=== PATIENT | female | born 1960 | race Caucasian/White ===

== ENCOUNTER → 2016-03-13 | Outpatient (CLI) | payer OTHER ==
--- NOTE | 2016-03-16 11:43 | MM ---
Reason for exam: screening (asymptomatic). Last mammogram was performed 1 year and 2 months ago. History: Patient is postmenopausal. Benign excisional biopsy of the left breast. Benign excisional biopsy of the right breast. Taking estrogen for 9 years beginning at age 47. Physical Findings: A clinical breast exam by your physician is recommended on an annual basis and results should be correlated with mammographic findings. MG Screening Mammo w CAD Bilateral CC and MLO view(s) were taken. Prior study comparison: January 16, 2015, bilateral MG screening mammo w CAD. January 05, 2014, bilateral MG screening mammo w CAD. The breast tissue is extremely dense which could obscure a lesion on mammography. No significant changes when compared with prior studies. ASSESSMENT: Benign, BI-RAD 2 RECOMMENDATION: Routine screening mammogram of both breasts in 1 year.
== END | disposition home or self-care (01) ==
LOC: RADMAMWWP 14:26
PROVIDERS: ATTEND Internal Medicine
DX: Z12.31 Encounter for screening mammogram for malignant neoplasm of breast (principal)

== ENCOUNTER → 2017-04-07 | Outpatient (CLI) | payer OTHER ==
--- NOTE | 2017-04-08 13:04 | MM ---
Reason for exam: screening (asymptomatic). Last mammogram was performed 1 year and 1 month ago. History: Patient is postmenopausal. Benign excisional biopsy of the left breast. Benign excisional biopsy of the right breast. Taking estrogen for 9 years beginning at age 47. Physical Findings: A clinical breast exam by your physician is recommended on an annual basis and results should be correlated with mammographic findings. MG Screening Mammo w CAD Bilateral CC and MLO view(s) were taken. Prior study comparison: March 13, 2016, bilateral MG screening mammo w CAD. January 16, 2015, bilateral MG screening mammo w CAD. The breast tissue is heterogeneously dense. This may lower the sensitivity of mammography. There is chronic nodularity bilaterally. There is no dominant lesion. There is no discrete abnormality. No significant changes when compared with prior studies. ASSESSMENT: Benign, BI-RAD 2 RECOMMENDATION: Routine screening mammogram of both breasts in 1 year.
== END | disposition home or self-care (01) ==
LOC: RADMAMWWP 10:53
PROVIDERS: ATTEND Internal Medicine
DX: Z12.31 Encounter for screening mammogram for malignant neoplasm of breast (principal)
CPT/HCPCS: 77067

== ENCOUNTER → 2017-06-02 | Outpatient (CLI) | payer OTHER ==
--- NOTE | 2017-06-02 11:23 | CT ---
EXAMINATION TYPE: CT abdomen w con DATE OF EXAM: 06/02/2017 HISTORY: RLQ pain per patient. Right lower flank pain per order. CT DLP: 1529.20mGycm Automated Exposure Control for Dose Reduction was Utilized. CONTRAST: CT scan of the abdomen and pelvis is performed with oral and without and with IV Contrast, patient in jected with 100 mL of Isovue 300. COMPARISON: None. FINDINGS: LUNG BASES: Coronary artery calcification is present which is noted marker for coronary artery diseas e. LIVER/GB: No significant abnormality is appreciated. PANCREAS: No significant abnormality is seen. SPLEEN: No significant abnormality is seen. ADRENALS: No significant abnormality is seen. KIDNEYS: Noncontrast images show no renal calculi bilaterally. Postcontrast images show symmetric cor tical medullary uptake and excretion from both kidneys without evidence of concerning solid or cystic renal mass or hydronephrosis bilaterally. There are scattered right greater than left pelvic phlebol iths. BOWEL: The oral contrast reaches level of sigmoid colon. There is no suspicious small or large bowel dilatation. There is low lying cecum into the anterior right pelvis. There is mild wall thickening of the proximal one third to one half of right colon. Appendix not well visualized. No inflammatory yeyo nge at base of cecum is seen however. UTERUS/ADNEXA: Uterus is surgically absent or markedly atrophic in appearance. LYMPH NODES: No greater than 1cm abdominal or pelvic lymph nodes are appreciated. OSSEOUS STRUCTURES: There is dextroconvex scoliosis centered in the upper lumbar spine. There is loss of normal lumbar lordosis. There is moderate multilevel spurring. There is moderate to severe disc s pace narrowing L1-L2 level. Posterior spur disc are effacing anterior thecal sac L1-L2 and L2-L3 leve ls. OTHER: No significant additional abnormality is seen. IMPRESSION: 1. No renal stones or hydronephrosis is evident bilaterally. 2. Possible mild right-sided proximal colitis, correlate clinically. No bowel obstruction is seen.
== END | disposition home or self-care (01) ==
LOC: RADCTMAIN 08:49
PROVIDERS: ATTEND Internal Medicine
DX: R10.31 Right lower quadrant pain (principal)
CPT/HCPCS: 74160; Q9967

== ENCOUNTER 2017-06-23 09:37 | Day surgery (SDC) | payer OTHER ==
[2017-06-22 12:36] VITALS: BMI 32.0
[~2017-06-23 09:37] MED LIST: LACTATED RINGERS 1,000 ML IV SCH; LIDOCAINE 1% 20 ML VIAL (10MG/ML) FOR IV START INTRADERMA PRN
[2017-06-23 10:12] VITALS: RESP 16; TEMP 97.4
--- NOTE | 2017-06-23 11:00 | P.PCN ---
Date of Procedure: 06/23/17 Procedure(s) Performed: BRIEF HISTORY: Patient is a 57-year-old pleasant white male, scheduled for an elective colonoscopy as a part of evaluation of positive Cologard testing, done for screening for colorectal neoplasia. PROCEDURE PERFORMED: Colonoscopy with snare polypectomy. PREOPERATIVE DIAGNOSIS: Positive cologard. IV sedation per Anesthesia. PROCEDURE: After informed consent was obtained, the patient, was brought into the endoscopy unit. IV sedation was administered by Anesthesia under continuous monitoring. Digital rectal examination was normal. Initially the Olympus CF- 160 flexible video colonoscope was then inserted in the rectum, gradually advanced into the cecum without any difficulty. Careful examination was performed as the scope was gradually being withdrawn. Ileocecal valve and the appendiceal orifice were visualized and appeared normal. Prep was excellent. Mucosa of the cecum appeared normal. In the ascending colon there was a 5 mm sessile polyp removed by snare polypectomy. Rest of the ascending colon, transverse colon, descending colon, sigmoid colon, and rectum appeared normal. Retroflexion was performed in the rectum and no lesions were seen. The patient tolerated the procedure well. IMPRESSION: 5 mm ascending colon polyp status post polypectomy Rest of the colon was normal. RECOMMENDATIONS: Findings of this examination were discussed with the patient as his family. He Was advised to follow with the biopsy results. If the biopsy shows a tubular adenoma, he can have a repeat colonoscopy in 5 years.
[2017-06-23] MEDS ORDERED: PROPOFOL 10 MG/ML 20 ML VIAL IV ONE (11:07)
[2017-06-23 11:30] VITALS: BP 106/63
[2017-06-23 11:41] VITALS: PULSE 67
--- NOTE | 2017-06-23 12:00 | P.PCN ---
Date of Procedure: 06/23/17 Procedure(s) Performed: BRIEF HISTORY: Patient is a 57-year-old pleasant female, scheduled for an elective colonoscopy as a part of a value should of right-sided abdominal pain for the last 1 month duration. She had a CT of the abdomen and pelvis done that showed evidence of thickening of the right colon suspicious colitis and hence she is scheduled for colonoscopy to evaluate further PROCEDURE PERFORMED: Colonoscopy with biopsy. PREOPERATIVE DIAGNOSIS: Right-sided abdominal pain of one month duration. IV sedation per Anesthesia. PROCEDURE: After informed consent was obtained, the patient, was brought into the endoscopy unit. IV sedation was administered by Anesthesia under continuous monitoring. Digital rectal examination was normal. Initially the Olympus CF- 160 flexible video colonoscope was then inserted in the rectum, gradually advanced into the cecum without any difficulty. Careful examination was performed as the scope was gradually being withdrawn. Ileocecal valve and the appendiceal orifice were visualized and appeared normal. Prep was excellent. Terminal ileum was intubated and 20 cm visualized and appeared normal. Mucosa of the cecum, ascending colon, transverse colon, descending colon, sigmoid colon , and rectum appeared normal. Retroflexion was performed in the rectum and no lesions were seen. Random biopsies were done from ascending colon. The patient tolerated the procedure well. IMPRESSION: Normal-appearing colon from rectum to cecum with no evidence of colitis or colorectal neoplasia. RECOMMENDATIONS: Findings of this examination were discussed with the patient as well as her family. She was advised to follow with the biopsy results. She can have a repeat colonoscopy in 10 years.
== END 2017-06-23 12:16 | disposition home or self-care (01) ==
LOC: ORWHC2ENDO 09:37
PROVIDERS: ATTEND Internal Medicine Gastroenterology
DX: R10.9 Unspecified abdominal pain (principal); R93.3 Abnormal findings on diagnostic imaging of other parts of digestive tract; I10 Essential (primary) hypertension; M54.5 Low back pain; K21.9 Gastro-esophageal reflux disease without esophagitis; Z79.899 Other long term (current) drug therapy
CPT/HCPCS: 88305; 45380; J2704

== ENCOUNTER → 2017-10-30 | Outpatient (CLI) | payer OTHER ==
[2017-10-30 11:40] LABS: Cholesterol 192 mg/dL (<200); HDL Cholesterol 84 mg/dL (40-60); LDL Cholesterol,Calculated 87 mg/dL (0-99); Triglycerides 105 mg/dL (<150)
== END | disposition home or self-care (01) ==
LOC: LABWHC1 10:47
PROVIDERS: ATTEND Internal Medicine
DX: E78.4 Other hyperlipidemia (principal); Z13.220 Encounter for screening for lipoid disorders
CPT/HCPCS: 36415; 80061

== ENCOUNTER → 2018-04-12 | Outpatient (CLI) | payer OTHER ==
--- NOTE | 2018-04-13 08:41 | MM ---
Reason for exam: screening (asymptomatic). Last mammogram was performed 1 year ago. History: Patient is postmenopausal. Benign excisional biopsy of the left breast. Benign excisional biopsy of the right breast. Taking estrogen for 9 years beginning at age 47. Physical Findings: A clinical breast exam by your physician is recommended on an annual basis and results should be correlated with mammographic findings. MG Screening Mammo w CAD Bilateral CC and MLO view(s) were taken. Prior study comparison: April 07, 2017, bilateral MG screening mammo w CAD. March 13, 2016, bilateral MG screening mammo w CAD. The breast tissue is extremely dense which could obscure a lesion on mammography. Benign calcifications in the right breast. No suspicious abnormality. No significant changes when compared with prior studies. ASSESSMENT: Benign, BI-RAD 2 RECOMMENDATION: Routine screening mammogram of both breasts in 1 year.
== END ==
LOC: RADMAMWWP 10:03
PROVIDERS: ATTEND Internal Medicine
DX: Z12.31 Encounter for screening mammogram for malignant neoplasm of breast (principal)
CPT/HCPCS: 77067

== ENCOUNTER → 2018-09-23 | Outpatient (CLI) | payer OTHER ==
--- NOTE | 2018-09-23 10:30 | US ---
EXAMINATION TYPE: US venous doppler duplex LE RT DATE OF EXAM: 09/23/2018 10:08 AM COMPARISON: NONE CLINICAL HISTORY: M79.671 PAIN RT FOOT, M19.071 PRIMARY OSTEOARTHRITIS. Surgery 08/30/2018 on right jeri t and tendon right calf. Pain right calf. SIDE PERFORMED: Right TECHNIQUE: The lower extremity deep venous system is examined utilizing real time linear array sonog yvette with graded compression, doppler sonography and color-flow sonography. VESSELS IMAGED: External Iliac Vein (EIV) Common Femoral Vein Deep Femoral Vein Greater Saphenous Vein * Femoral Vein Popliteal Vein Small Saphenous Vein * Proximal Calf Veins (* superficial vessels) Grayscale, color doppler, spectral doppler imaging performed of the deep veins of the right lower ext remity. There is normal flow, compressibility, vascular waveforms. Right Leg: Negative for DVT. Positive for SVT at the area of her pain right calf. IMPRESSION: 1. Superficial venous thrombosis at the area of pain. 2. No sonographic evidence of deep venous thrombosis within the right lower extremity.
== END | disposition home or self-care (01) ==
LOC: RADUSWWP 09:42
PROVIDERS: ATTEND Orthopaedic Surgery
DX: I82.811 Embolism and thrombosis of superficial veins of right lower extremity (principal)

== ENCOUNTER → 2018-10-18 | Outpatient (CLI) | payer OTHER ==
[2018-10-18 14:15] LABS: Basophils # (A) 0.1 k/uL (0-0.2); Basophils % (A) 1 %; Eosinophils # (A) 0.3 k/uL (0-0.7); Eosinophils % (A) 3 %; HCT 37.8 % (34.0-46.0); HGB 12.3 gm/dL (11.4-16.0); Lymphocytes # (A) 1.8 k/uL (1.0-4.8); Lymphocytes % (A) 19 %; MCH 30.8 pg (25.0-35.0); MCHC 32.5 g/dL (31.0-37.0); MCV 94.7 fL (80.0-100.0); Mean Platelet Volume 7.1; Monocytes # (A) 0.4 k/uL (0-1.0); Monocytes % (A) 4 %; Neutrophils # (A) 6.9 k/uL (1.3-7.7); Neutrophils % (A) 73 %; Platelet Count 261 k/uL (150-450); RBC 3.99 m/uL (3.80-5.40); RDW 12.6 % (11.5-15.5); WBC 9.5 k/uL (3.8-10.6)
[2018-10-18 18:42] LABS: African American GFR (CKD) 93.5 (60.0-200.0); Albumin 4.3 g/dL (3.80-4.90); Albumin/Globulin Ratio 1.95 (1.60-3.17); Anion Gap 7.9 mmol/L (4.00-12.00); BUN/Creat Ratio 27.5 Ratio (12.00-20.00); Calcium 9.9 mg/dL (8.7-10.3); Carbon Dioxide 30.1 mmol/L (21.6-31.8); Chol/HDL Ratio 2.68; Globulin 2.2 g/dL (1.6-3.3); LDL Cholesterol,Calculated 111.2 mg/dL (0.0-131.0); Potassium 4.9 mmol/L (3.5-5.5); Total Bilirubin 0.4 mg/dL (0.2-1.2); Total Protein 6.5 g/dL (6.2-8.2); VLDL Calculation 24.8 mg/dL (5.00-40.00)
== END | disposition home or self-care (01) ==
LOC: LABWHC1 13:17
PROVIDERS: ATTEND Nurse Practitioner Family
DX: I10 Essential (primary) hypertension (principal); D64.9 Anemia, unspecified; E03.9 Hypothyroidism, unspecified; E78.5 Hyperlipidemia, unspecified; R79.9 Abnormal finding of blood chemistry, unspecified; E87.8 Other disorders of electrolyte and fluid balance, not elsewhere classified
CPT/HCPCS: 36415; 80053; 80061; 84443; 85025

== ENCOUNTER 2019-02-22 14:47 | Emergency (ER) | payer OTHER ==
[2019-02-22 14:59] VITALS: RESP 18
[2019-02-22] MEDS ORDERED: KETOROLAC 30 MG/ML 1 ML VIAL IM STA (15:31)
--- NOTE | 2019-02-22 15:43 | ED ---
Extremity Problem HPI - General Chief complaint: Extremity Problem,Nontraumatic Stated complaint: rt leg pain Time Seen by Provider: 02/22/19 15:03 Source: patient Mode of arrival: ambulatory Limitations: no limitations - History of Present Illness Initial comments: Patient is a 58-year-old female presenting to emergency Department with complaints of right hip and right low back pain has been increasing for the past week. Patient denies any injuries or trauma. Patient states she is in physical therapy for surgery of her right foot. Patient states she did having some tightness in her right SI area and symptoms have been progressing. She is getting radiating pain into her right groin and right anterior thigh. Patient denies any fever, chills, numbness into the lower extremities, urinary/fecal incontinence. Patient denies any surgeries to her back. She has been taking tramadol for her back pain without improvement in symptoms. No history of DVT or PE. There are no other complaints at this time. Upon arrival to the ER, vital signs are stable. - Related Data Home Medications Medication Instructions Recorded Confirmed Gabapentin [Neurontin] 400 mg PO QAM 04/19/14 06/23/17 Lisinopril [Prinivil] 20 mg PO DAILY 04/19/14 06/23/17 Meloxicam [Mobic] 7.5 mg PO BID 04/19/14 06/23/17 Omeprazole 40 mg PO DAILY 04/19/14 06/23/17 Gabapentin 600 mg PO AC-LUNCH 06/03/17 06/23/17 Gabapentin [Neurontin] 800 mg PO HS 06/03/17 06/23/17 traMADol HCL [Ultram] 50 - 100 mg PO Q6H PRN 06/03/17 06/23/17 Estrogens, Conjugated [Premarin] 0.625 mg PO DAILY 06/22/17 06/23/17 Pravastatin Sodium [Pravachol] 40 mg PO HS 06/22/17 06/23/17 Previous Rx's Medication Instructions Recorded Cyclobenzaprine [Flexeril] 5 mg PO BID #10 tablet 02/22/19 methylPREDNISolone [Medrol Dose 4 mg PO DIRECTED #1 pack 02/22/19 Pack] Allergies Allergy/AdvReac Type Severity Reaction Status Date / Time No Known Allergies Allergy Verified 02/22/19 14:59 Review of Systems ROS Statement: Those systems with pertinent positive or pertinent negative responses have been documented in the HPI. ROS Other: All systems not noted in ROS Statement are negative. Past Medical History Past Medical History: Coronary Artery Disease (CAD), GERD/Reflux, Hyperlipidemia, Hypertension, Osteoarthritis (OA) Additional Past Medical History / Comment(s): plantar fASCITIS, heel spurs, heart murmur History of Any Multi-Drug Resistant Organisms: None Reported Past Surgical History: Section, Heart Catheterization, Hysterectomy Additional Past Surgical History / Comment(s): BILAT BREAST CYSTS REMOVED. BILAT WRIST CYSTS REMOVED. COLONOSCOPY Past Anesthesia/Blood Transfusion Reactions: No Reported Reaction Past Psychological History: No Psychological Hx Reported Smoking Status: Former smoker Past Alcohol Use History: None Reported Past Drug Use History: None Reported - Past Family History Mother Family Medical History: No Reported History General Exam - General Exam Comments Initial Comments: GENERAL: Well-appearing, well-nourished and in no acute distress. HEAD: Atraumatic, normocephalic. EYES: Pupils equal round and reactive to light, extraocular movements intact, sclera anicteric, conjunctiva are normal. ENT: TMs normal, nares patent, oropharynx clear without exudates. Moist mucous membranes. NECK: Normal range of motion, supple without lymphadenopathy or JVD. LUNGS: Breath sounds clear to auscultation bilaterally and equal. No wheezes rales or rhonchi. HEART: Regular rate and rhythm without murmurs, rubs or gallops. ABDOMEN: Soft, nontender, normoactive bowel sounds. No guarding, no rebound. No masses appreciated. : Deferred EXTREMITIES: Pain with palpation of the right inguinal area as well as right anterior and lateral thigh. Pain in the right SI and sciatica area. Increased pain with right hip range of motion. There is no swelling, erythema. Neurovascular intact. NEUROLOGICAL: Normal speech, normal gait. PSYCH: Normal mood, normal affect. SKIN: Warm, Dry, normal turgor, no rashes or lesions noted. Limitations: no limitations Course Vital Signs 02/22/19 14:56 Temperature 97.4 F L Pulse Rate 69 Respiratory 18 Rate Blood Pressure 198/84 O2 Sat by Pulse 99 Oximetry Medical Decision Making - Medical Decision Making Patient is a 58-year-old female presenting with right hip and right low back pain for one week. No trauma or injuries. X-rays of the right hip and lumbar region shows no acute abnormalities. Lumbar x-rays show increasing degenerative disc disease. Patient will be given prescription for steroids and muscle relaxer. She has Ultram at home. Patient is agreement with this plan of care. She will follow-up with her doctor. Patient stable for discharge at this time. Disposition Clinical Impression: Right hip pain, Right sided sciatica Disposition: HOME SELF-CARE Condition: Stable Instructions (If sedation given, give patient instructions): Sciatica (ED) Additional Instructions: Please return to the Emergency Department if symptoms worsen or any other concerns. Trial of steroids and a muscle relaxer for symptom relief. Apply heat to the area and gentle stretching. Prescriptions: Cyclobenzaprine [Flexeril] 5 mg PO BID #10 tablet methylPREDNISolone [Medrol Dose Pack] 4 mg PO DIRECTED #1 pack Is patient prescribed a controlled substance at d/c from ED?: No Referrals: Nonstaff,Physician [Primary Care Provider] - 1-2 days
--- NOTE | 2019-02-22 16:25 | XR ---
EXAMINATION TYPE: XR lumbar spine 2 or 3V DATE OF EXAM: 02/22/2019 COMPARISON: 04/21/2014 HISTORY: Back pain TECHNIQUE: 3 views FINDINGS: There is a mild thoracolumbar dextroscoliosis. There is no compression fracture. There is m ultilevel hypertrophic degenerative disc change with spurring of the endplates. Abdominal aorta is at heromatous. Sacroiliac joints are intact. There is more severe narrowing at L1-2. IMPRESSION: Multilevel spondylosis. Scoliotic mild deformity. There is progression of the disc diseas e and increased per formation compared to old exam. No fracture.
--- NOTE | 2019-02-22 16:37 | XR ---
EXAMINATION TYPE: XR Hip Complete RT DATE OF EXAM: 02/22/2019 COMPARISON: 11/10/2013 HISTORY: Right hip pain TECHNIQUE: 2 views FINDINGS: There is no sign of fracture nor dislocation. Sacroiliac joint is intact. Hip joint space i s fairly normal. IMPRESSION: Negative right hip exam. No change.
[2019-02-22 16:54] VITALS: BP 151/74; PULSE 84; TEMP 97.5
== END 2019-02-22 16:52 | disposition home or self-care (01) ==
LOC: EC 14:47
DX: M51.16 Intervertebral disc disorders with radiculopathy, lumbar region (principal); I25.10 Atherosclerotic heart disease of native coronary artery without angina pectoris; K21.9 Gastro-esophageal reflux disease without esophagitis; E78.5 Hyperlipidemia, unspecified; I10 Essential (primary) hypertension; M19.90 Unspecified osteoarthritis, unspecified site; Z95.818 Presence of other cardiac implants and grafts; Z87.891 Personal history of nicotine dependence; Z79.1 Long term (current) use of non-steroidal anti-inflammatories (NSAID); Z79.891 Long term (current) use of opiate analgesic; Z79.890 Hormone replacement therapy; Z79.899 Other long term (current) drug therapy
CPT/HCPCS: 72100; 73502; 99283; 96372; J1885

== ENCOUNTER → 2019-05-15 | Outpatient (CLI) | payer OTHER ==
[2019-05-15 07:30] LABS: Calcium 9.6 mg/dL (8.4-10.2); Potassium 3.9 mmol/L (3.5-5.1)
--- NOTE | 2019-05-15 07:51 | US ---
EXAMINATION TYPE: US venous doppler duplex UE RT DATE OF EXAM: 05/15/2019 COMPARISON: NONE CLINICAL HISTORY: 58-year-old female R22.31 SWELLING OF RT WRIST. Injury at work in right wrist and now having swelling along the anterior portion of the wrist Technique: Grayscale, color doppler, spectral doppler imaging performed of the deep veins of the righ t upper extremities. SIDE PERFORMED: Right FINDINGS: Right Arm: There is normal flow, compressibility and vascular waveforms. Appears negative for DVT. At the area of concern along the anterior right wrist, there appears to be some associated tenosynovi al fluid. IMPRESSION: 1. No evidence for DVT within the right upper extremity. 2. Targeted scanning at the site of swelling anterior aspect of the right wrist show some tenosynovia l fluid. Very limited ultrasound assessment.
== END | disposition home or self-care (01) ==
LOC: RADUSWWP 06:31
PROVIDERS: ATTEND Family Medicine
DX: R22.31 Localized swelling, mass and lump, right upper limb (principal); R53.83 Other fatigue
CPT/HCPCS: 80048; 84443

== ENCOUNTER → 2019-08-23 | Outpatient (CLI) | payer OTHER ==
--- NOTE | 2019-08-23 09:29 | CT ---
CT right ankle HISTORY: Pain in right ankle Helical acquisition through the right ankle. Reconstructions were performed in coronal and sagittal p lanes, three-dimensional reconstructions on an alternate station. Automated exposure control for dose reduction. DLP 187.1 mGycm. No plain film supplied for correlation. Postop changes are noted within the foot status post multilevel arthrodesis. There is artifact due to the hardware. There is a plantar calcaneal spur. Vacuum phenomenon is present at the tibiotalar join t, some marginal spurring is present in the anterior talus. No evident bony tarsal coalition. Arthrop athy change present at the tarsometatarsal joints with marginal spurring joint space loss. Ankylosis is present at the medial and middle cuneiform tarsal joints. No bony fusion present at the lateral cu neiform third metatarsal joint. Screws breach the volar cortex of the medial cuneiform and screw cour ses into the joint between the middle and medial cuneiform. There is soft tissue swelling present. No evident dislocation. IMPRESSION: Osteoarthritis. Postop changes as described. Plantar calcaneal spur. Soft tissue swelling .
== END | disposition home or self-care (01) ==
LOC: RADCTMAIN 06:52
PROVIDERS: ATTEND Orthopaedic Surgery
DX: M19.071 Primary osteoarthritis, right ankle and foot (principal); Z98.1 Arthrodesis status; M77.31 Calcaneal spur, right foot; M20.11 Hallux valgus (acquired), right foot; I10 Essential (primary) hypertension; Z48.89 Encounter for other specified surgical aftercare; Z87.891 Personal history of nicotine dependence

== ENCOUNTER → 2019-10-05 | Outpatient (CLI) | payer OTHER | END | disposition home or self-care (01) | LOC: LABWHC1 10:25 | PROVIDERS: ATTEND Orthopaedic Surgery | DX: T84.84XD Pain due to internal orthopedic prosthetic devices, implants and grafts, subsequent encounter (principal); M79.671 Pain in right foot; M19.071 Primary osteoarthritis, right ankle and foot; M20.11 Hallux valgus (acquired), right foot; M21.6X1 Other acquired deformities of right foot; Z48.89 Encounter for other specified surgical aftercare | CPT/HCPCS: 36415; 82306 ==

== ENCOUNTER → 2020-03-14 | Outpatient (CLI) | payer OTHER ==
--- NOTE | 2020-03-14 11:24 | MR ---
EXAMINATION TYPE: MR lumbar spine wo con DATE OF EXAM: 03/14/2020 COMPARISON: NONE HISTORY: Low back pain, Right sided into buttock and front of thigh x several years TECHNIQUE: T1 and T2 axial and sagittal images of the lumbar spine are submitted. FINDINGS: There is no abnormal signal seen within the visualized spinal cord or paraspinal soft tissu es. There is a scoliotic curvature with multilevel moderate to severe degenerative disc disease at al l levels. At T12-L1 there is circumferential disc bulging but no canal stenosis. Mild facet arthropathy. Neural foramina patent. At L1-2 there is severe degenerative disc disease with posterior spurring there is hypertrophic meraz e of the left facet resulting in contact of the left margin of the thecal sac. There is a central foc al disc protrusion or small herniation extending along the upper margin of the L2 vertebral segment. Moderate effacement of thecal sac. Mild left foraminal encroachment. At L2-3 there is severe degenerative disc disease with left paracentral disc protrusion or broad-base d herniation results in moderate effacement of thecal sac. There is hypertrophic changes of the facet s with mild bilateral foraminal encroachment. At L3-4 there is moderate degenerative disc disease with broad-based disc bulging and facet hypertrop hy with ligamentum flavum hypertrophy. Mild bilateral foraminal encroachment no Canal stenosis. At L4-5 there is severe degenerative disc disease with broad-based disc protrusion or herniation. Mar ked hypertrophy of the ligamentum flavum and facet arthropathy are noted with moderate canal stenosis and moderate right foraminal encroachment. Disc bulging greater laterally to the right. At L5-S1 there is moderate degenerative disc disease with advanced facet arthropathy. Broad-based dis c protrusion with mild effacement of thecal sac. Mild bilateral foraminal encroachment. Borderline ca nal stenosis. IMPRESSION: 1. Scoliosis with multilevel moderate to severe degenerative disc disease. Multilevel foraminal encro achment as discussed above. 2. Multilevel disc bulging or protrusions as discussed above. Central disc herniation L1-L2 which ext ends along the upper margin of the L2 vertebral segment. Suggestive of extruded disc component.
== END | disposition home or self-care (01) ==
LOC: RADMRIMAIN 10:39
PROVIDERS: ATTEND Physical Medicine & Rehabilitation
DX: M51.16 Intervertebral disc disorders with radiculopathy, lumbar region (principal); M41.86 Other forms of scoliosis, lumbar region
CPT/HCPCS: 72148

== ENCOUNTER → 2020-05-01 | Outpatient (CLI) | payer OTHER ==
[2020-05-01 16:07] LABS: Basophils # (A) 0.04 X 10*3/uL (0.00-0.10); Basophils % (A) 0.8 %; Eosinophils # (A) 0.21 X 10*3/uL (0.04-0.35); Eosinophils % (A) 4.1 %; HCT 38.7 % (37.2-46.3); HGB 12.5 g/dL (12.0-15.0); Lymphocytes # (A) 1.82 X 10*3/uL (0.90-5.00); Lymphocytes % (A) 35.6 %; MCH 30.4 pg (27.0-32.0); MCHC 32.3 g/dL (32.0-37.0); MCV 94.2 fL (80.0-97.0); Mean Platelet Volume 10.9 fL (9.5-12.2); Monocytes # (A) 0.48 X 10*3/uL (0.20-1.00); Monocytes % (A) 9.4 %; Neutrophils # (A) 2.54 X 10*3/uL (1.80-7.70); Neutrophils % (A) 49.7 %; Platelet Count 237 X 10*3/uL (140-440); RBC 4.11 X 10*6/uL (4.10-5.20); RDW 12.8 % (11.5-14.5); WBC 5.11 X 10*3/uL (4.50-10.00)
[2020-05-01 20:14] LABS: African American GFR (CKD) 80.5 (60.0-200.0); Albumin 4.3 g/dL (3.80-4.90); Albumin/Globulin Ratio 1.72 (1.60-3.17); Anion Gap 9.9 mmol/L (4.00-12.00); BUN/Creat Ratio 27.78 Ratio (12.00-20.00); Calcium 9.8 mg/dL (8.7-10.3); Carbon Dioxide 25.1 mmol/L (21.6-31.8); Chol/HDL Ratio 2.57; Globulin 2.5 g/dL (1.6-3.3); LDL Cholesterol,Calculated 118.4 mg/dL (0.0-131.0); Non-African American GFR(CKD) 69.5 (60.0-200.0); Potassium 4.7 mmol/L (3.5-5.5); Total Bilirubin 0.4 mg/dL (0.2-1.2); Total Protein 6.8 g/dL (6.2-8.2); VLDL Calculation 21.6 mg/dL (5.00-40.00)
== END | disposition home or self-care (01) ==
LOC: LABWHC1 09:46
PROVIDERS: ATTEND Nurse Practitioner Family
DX: I10 Essential (primary) hypertension (principal); E87.8 Other disorders of electrolyte and fluid balance, not elsewhere classified; E78.2 Mixed hyperlipidemia; E55.9 Vitamin D deficiency, unspecified; R94.7 Abnormal results of other endocrine function studies; R53.83 Other fatigue
CPT/HCPCS: 36415; 80053; 80061; 82306; 84443; 85025

== ENCOUNTER → 2020-06-10 | Outpatient (CLI) | payer OTHER ==
--- NOTE | 2020-06-10 11:51 | CT ---
EXAMINATION TYPE: CT foot RT wo con DATE OF EXAM: 06/10/2020 COMPARISON: MRI brain ankle August 23, 2019. HISTORY: Right foot pain, primary osteoarthritis, status post first second and third tarsal metatarsa l arthrodesis, status post correction rigid second toe deformity, status post hallux valgus correctio n surgery August 30, 2018, status post debridement of hardware from incomplete arthrodesis third tarsal metatarsal joint September 25, 2019. CT DLP: 224 mGycm Automated exposure control for dose reduction was used. FINDINGS: Hindfoot structures redemonstrate moderate size superior and large size inferior calcaneal spur is. S table moderate narrowing of the inferior calcaneal cuboid joint. Normal sinus tarsi fat remains prese nt. Midfoot structures demonstrate interval removal of extensive surgical hardware medially. The thyroid ossific fusion base of first metatarsal with medial cuneiform is identified. Satisfactory alignment n oted. There is near complete ossific fusion of base of second metatarsal with the middle cuneiform. T here is incomplete fusion of the base of third metatarsal with the lateral cuneiform. Moderate to sev ere narrowing is present. Base of fourth and fifth metatarsal articulations are stable with moderate narrowing. No significant new bony formation. There is hallux valgus positioning first metatarsophalangeal joint. There is flexion in varus positio tyrone distal fifth toe. Mild to moderate subcutaneous edema in the right foot is greatest at the hindfoot level similar to pr ior. IMPRESSION: As above.
== END | disposition home or self-care (01) ==
LOC: RADCTMAIN 08:56
PROVIDERS: ATTEND Podiatrist
DX: M19.071 Primary osteoarthritis, right ankle and foot (principal); R60.0 Localized edema; Z98.1 Arthrodesis status

== ENCOUNTER → 2020-06-19 | Outpatient (CLI) | payer OTHER ==
--- NOTE | 2020-06-20 14:08 | MM ---
Reason for exam: screening (asymptomatic). Last mammogram was performed 2 years and 2 months ago. History: Patient is postmenopausal. Benign excisional biopsy of the left breast. Benign excisional biopsy of the right breast. Taking estrogen for 9 years beginning at age 47. Physical Findings: A clinical breast exam by your physician is recommended on an annual basis and results should be correlated with mammographic findings. MG Screening Mammo w CAD Bilateral CC and MLO view(s) were taken. Prior study comparison: April 12, 2018, bilateral MG screening mammo w CAD. April 07, 2017, bilateral MG screening mammo w CAD. The breast tissue is heterogeneously dense. This may lower the sensitivity of mammography. Benign calcifications. No significant changes when compared with prior studies. ASSESSMENT: Benign, BI-RAD 2 RECOMMENDATION: Routine screening mammogram of both breasts in 1 year.
== END | disposition home or self-care (01) ==
LOC: RADMAMWWP 16:26
PROVIDERS: ATTEND Family Medicine
DX: Z12.31 Encounter for screening mammogram for malignant neoplasm of breast (principal)
CPT/HCPCS: 77067

== ENCOUNTER → 2020-08-29 | Outpatient (CLI) | payer OTHER ==
[2020-08-29 14:38] LABS: Basophils # (A) 0.03 X 10*3/uL (0.00-0.10); Basophils % (A) 0.5 %; Eosinophils # (A) 0.12 X 10*3/uL (0.04-0.35); Eosinophils % (A) 2.2 %; HCT 39.8 % (37.2-46.3); Lymphocytes # (A) 1.76 X 10*3/uL (0.90-5.00); Lymphocytes % (A) 32.2 %; MCH 31.2 pg (27.0-32.0); MCHC 32.7 g/dL (32.0-37.0); MCV 95.4 fL (80.0-97.0); Mean Platelet Volume 10.1 fL (9.5-12.2); Neutrophils # (A) 2.95 X 10*3/uL (1.80-7.70); Neutrophils % (A) 53.9 %; Platelet Count 279 X 10*3/uL (140-440); RBC 4.17 X 10*6/uL (4.10-5.20); RDW 12.1 % (11.5-14.5); WBC 5.47 X 10*3/uL (4.50-10.00)
[2020-08-29 15:50] LABS: African American GFR (CKD) 92.2 (60.0-200.0); Albumin 4.1 g/dL (3.80-4.90); Albumin/Globulin Ratio 1.58 (1.60-3.17); Anion Gap 4.1 mmol/L (4.00-12.00); BUN/Creat Ratio 26.25 Ratio (12.00-20.00); Calcium 9.2 mg/dL (8.7-10.3); Carbon Dioxide 28.9 mmol/L (21.6-31.8); Chol/HDL Ratio 2.18; Globulin 2.6 g/dL (1.6-3.3); LDL Cholesterol,Calculated 98.8 mg/dL (0.0-131.0); Non-African American GFR(CKD) 79.6 (60.0-200.0); Potassium 4.2 mmol/L (3.5-5.5); Total Bilirubin 0.5 mg/dL (0.2-1.2); Total Protein 6.7 g/dL (6.2-8.2); VLDL Calculation 19.2 mg/dL (5.00-40.00)
== END | disposition home or self-care (01) ==
LOC: LABWHC1 10:45
PROVIDERS: ATTEND Family Medicine
DX: Z00.00 Encounter for general adult medical examination without abnormal findings (principal); I10 Essential (primary) hypertension; E78.5 Hyperlipidemia, unspecified; E55.9 Vitamin D deficiency, unspecified
CPT/HCPCS: 36415; 80053; 80061; 82306; 84443; 85025

== ENCOUNTER 2020-11-06 09:27 | Day surgery (SDC) | payer OTHER ==
[2020-11-04 15:55] VITALS: BMI 34.2
[~2020-11-06 09:27] MED LIST changes: -LIDOCAINE 1% 20 ML VIAL (10MG/ML) FOR IV START INTRADERMA PRN
[2020-11-06 09:46] VITALS: TEMP 97.8
[2020-11-06] MEDS ORDERED: LACTATED RINGERS 1,000 ML IV ONE (09:47)
[2020-11-06] MEDS ORDERED: LIDOCAINE 1% (10MG/ML) FOR IV START INTRADERMA ONE (09:53)
[2020-11-06] MEDS ORDERED: LIDOCAINE 1% INJ 10MG/ML (20 ML MDV) ONE (10:07)
[2020-11-06] MEDS ORDERED: PROPOFOL 10 MG/ML 20 ML VIAL IV ONE (10:07)
--- NOTE | 2020-11-06 10:30 | P.PCN ---
Date of Procedure: 11/06/20 Procedure(s) Performed: Brief history: Patient is a pleasant 60-year-old white female scheduled for an elective upper endoscopy as well as colonoscopy as a part of evaluation of GERD and screening for colorectal neoplasia. She is currently maintained on omeprazole 40 mg twice daily and doing well. Procedure performed: Esophagogastroduodenoscopy with biopsy Colonoscopy Preoperative diagnosis: GERD Screening for colon cancer Anesthesia: MAC Procedure: After informed consent was obtained from the patient was brought into the endoscopy unit and IV sedation was administered by anesthesia under continuous monitoring. Initially upper endoscopy was done. The Olympus GF 160 video endoscope was inserted inserted into the mouth and esophagus intubated without any difficulty and was gradually advanced into the stomach and duodenum and carefully examined. The bulb and second part of the duodenum appeared normal. The scope was then withdrawn into the stomach adequately insufflated with air and upon careful examination the antrum had minimal gastritis and biopsies were done from this area. The body, cardia and fundus appeared normal. The scope was then withdrawn into the esophagus. The GE junction was located at 40 cm to the incisors. It appeared regular with no erythema erosions or ulcerations. Rest of the esophagus appeared normal. Patient tolerated the procedure well. At this time the patient continued to remain sedation. Initial digital rectal examination was normal. Olympus CF 160 video colonoscope was then inserted into the rectum and gradually advanced to the cecum without any difficulty. Careful examination was performed as the scope was gradually being withdrawn. The prep was excellent. The cecum, ascending colon, transverse colon, descending colon, sigmoid colon and rectum appeared normal. Retroflexion was performed in the rectum and no lesions were noted. Patient tolerated the procedure well. Impression: 1. Upper endoscopy revealed mild antral gastritis but no evidence of esophagitis or Doe's esophagus 2. Colonoscopy was within normal limits with no evidence of colitis or colorectal neoplasia. Recommendations: Findings of this examination were discussed with the patient as well as a family. She was advised to follow with the biopsy results. Continue with omeprazole 20 mg twice daily and follow antireflux measures. She can have a repeat screening colonoscopy in 10 years.
[2020-11-06 10:37] VITALS: RESP 16
[2020-11-06 10:53] VITALS: BP 144/77; PULSE 60
== END 2020-11-06 11:14 | disposition home or self-care (01) ==
LOC: ORWHC2ENDO 09:27
PROVIDERS: ATTEND Internal Medicine Gastroenterology
DX: K21.9 Gastro-esophageal reflux disease without esophagitis (principal); K29.50 Unspecified chronic gastritis without bleeding; Z79.899 Other long term (current) drug therapy; I10 Essential (primary) hypertension; E78.5 Hyperlipidemia, unspecified; Z87.891 Personal history of nicotine dependence; I25.10 Atherosclerotic heart disease of native coronary artery without angina pectoris
CPT/HCPCS: 88305; 43239; J2001; J2704; G0121; 45378

== ENCOUNTER → 2021-08-09 | Outpatient (CLI) | payer OTHER ==
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
== END | disposition home or self-care (01) ==
LOC: RADMRIMAIN 11:18
PROVIDERS: ATTEND Physical Medicine & Rehabilitation
DX: M47.817 Spondylosis without myelopathy or radiculopathy, lumbosacral region (principal); M43.16 Spondylolisthesis, lumbar region; M41.26 Other idiopathic scoliosis, lumbar region; M47.812 Spondylosis without myelopathy or radiculopathy, cervical region; S16.1XXD Strain of muscle, fascia and tendon at neck level, subsequent encounter; X58.XXXD Exposure to other specified factors, subsequent encounter
CPT/HCPCS: 72141

== ENCOUNTER → 2022-08-04 | Outpatient (CLI) | payer OTHER ==
--- NOTE | 2022-08-05 08:54 | MM ---
Reason for Exam: Screening (asymptomatic). Last mammogram was performed 2 year(s) and 2 month(s) ago. Patient History: Menarche at age 11. First Full-Term at age 21. Right ovary removed at age 44. Hysterectomy at age 44. Postmenopausal. Estrogen, starting at age 47 for 9 years. Benign Excisional Biopsy on the right side. Benign Excisional Biopsy on the left side. Risk Values: Maranda 5 year model risk: 2.1%. NCI Lifetime model risk: 8.9%. Prior Study Comparison: 04/07/2017 Bilateral Screening Mammogram, [facility]. 04/12/2018 Bilateral Screening Mammogram, [facility]. 06/19/2020 Bilateral Screening Mammogram, [facility]. Tissue Density: The breast tissue is extremely dense which could obscure a lesion on mammography. Findings: Analyzed By CAD. There is no suspicious group of microcalcifications or new suspicious mass in either breast. Overall Assessment: Benign, BI-RAD 2 Management: Screening Mammogram of both breasts in 1 year. . Patient should continue monthly self-breast exams. A clinical breast exam by your physician is recommended on an annual basis. This exam should not preclude additional follow-up of suspicious palpable abnormalities. Note on Maranda scores and lifetime risk: 1. A Maranda score greater than 3% is considered moderate risk. If this is the case, consider specialist referral to assess eligibility for a risk reducing agent. 2. If overall lifetime risk for the development of breast cancer is 20% or higher, the patient may qualify for future screening with alternating mammogram and breast MRI. Electronically signed and approved by: Shaq Alba M.D. Radiologis
== END | disposition home or self-care (01) ==
LOC: RADMAMWWP 08:53
PROVIDERS: ATTEND Family Medicine
DX: Z12.31 Encounter for screening mammogram for malignant neoplasm of breast (principal); Z78.0 Asymptomatic menopausal state
CPT/HCPCS: 77063; 77067

== ENCOUNTER → 2022-09-28 | Outpatient (CLI) | payer OTHER ==
--- NOTE | 2022-09-28 13:02 | XR ---
EXAMINATION TYPE: XR ankle complete RT DATE OF EXAM: 09/28/2022 COMPARISON: None HISTORY: Pulled down unable to bear weight TECHNIQUE: 3 view right ankle FINDINGS: Soft tissue swelling is over the lateral malleolus. The ankle mortise is intact. No acute f ractures or dislocations are evident. Calcaneal heel spurs are present. Follow-up studies can be performed 7-10 days of acute trauma for continued pain. IMPRESSION: 1. No acute osseous abnormality right ankle. 2. Soft tissue swelling lateral malleolus.
--- NOTE | 2022-09-28 13:04 | XR ---
EXAMINATION TYPE: XR foot complete RT DATE OF EXAM: 09/28/2022 COMPARISON: None HISTORY: Pulled down unable to bear weight TECHNIQUE: 3 view right foot FINDINGS: Calcaneal heel spurs are present. Degenerative tarsal metatarsal junction and joint changes are evident. Alignment appears preserved. No acute fractures or dislocations are evident. Some soft tissue swelling is over the lateral malleolus. Follow-up exams can be performed 7-10 days from acute trauma for continued pain. IMPRESSION: 1. No acute osseous abnormality radiographically apparent.
== END | disposition home or self-care (01) ==
LOC: RADXRMAIN 12:15
PROVIDERS: ATTEND Emergency Medicine
DX: S93.401A Sprain of unspecified ligament of right ankle, initial encounter (principal); S93.601A Unspecified sprain of right foot, initial encounter; M79.89 Other specified soft tissue disorders

== ENCOUNTER → 2022-10-07 | Outpatient (CLI) | payer OTHER ==
--- NOTE | 2022-10-07 17:12 | XR ---
EXAMINATION TYPE: XR ankle complete RT DATE OF EXAM: 10/07/2022 COMPARISON: 09/28/2022 HISTORY: Right foot and ankle pain after injury TECHNIQUE: 3 view right ankle FINDINGS: There may be some increased soft tissue swelling about the ankle. The ankle mortise appears intact. No acute or subacute fractures are identified. Calcaneal heel spurs are present. Follow up exams can be performed as clinically indicated. IMPRESSION: 1. No acute or subacute fractures evident. 2. Mild soft tissue swelling may be slightly increased from comparison. 3. Calcaneal heel spurs
--- NOTE | 2022-10-07 17:13 | XR ---
EXAMINATION TYPE: XR foot complete RT DATE OF EXAM: 10/07/2022 COMPARISON: 09/28/2022 HISTORY: Right foot and ankle pain after twisting injury TECHNIQUE: 3 view right foot FINDINGS: No acute fractures evident. Old fracture of the second metatarsal may be present. Hallux va lgus deformity of the first digit is present. There may be some fusion of the base of the metatarsals with the cuneiforms. Degenerative joint change is present. Calcaneal heel spurs are present. Soft ti ssues are normal. Follow up exams can be performed 7-10 days from acute trauma for continued pain. IMPRESSION: 1. No acute osseous abnormality radiographically apparent. 2. Degenerative changes.
== END | disposition home or self-care (01) ==
LOC: RADXRMAIN 16:33
PROVIDERS: ATTEND Emergency Medicine
DX: M19.071 Primary osteoarthritis, right ankle and foot (principal); S93.401D Sprain of unspecified ligament of right ankle, subsequent encounter; S93.601D Unspecified sprain of right foot, subsequent encounter; M79.89 Other specified soft tissue disorders; M77.31 Calcaneal spur, right foot; X58.XXXD Exposure to other specified factors, subsequent encounter

== ENCOUNTER → 2022-10-15 | Outpatient (CLI) | payer OTHER ==
--- NOTE | 2022-10-15 16:57 | US ---
EXAMINATION TYPE: US venous doppler duplex LE RT DATE OF EXAM: 10/15/2022 4:53 PM COMPARISON: Right lower extremity venous ultrasound 09/23/2018 CLINICAL INDICATION: Female, 62 years old with history of RLE; M79.661; Right leg pain SIDE PERFORMED: Right TECHNIQUE: The lower extremity deep venous system is examined utilizing real time linear array sonog yvette with graded compression, doppler sonography and color-flow sonography. VESSELS IMAGED: Common Femoral Vein Deep Femoral Vein Greater Saphenous Vein * Femoral Vein Popliteal Vein Small Saphenous Vein * Proximal Calf Veins (* superficial vessels) Grayscale, color doppler, spectral doppler imaging performed of the deep veins of the lower extremiti es. There is normal flow, compressibility, vascular waveforms. Right Leg: Negative for DVT IMPRESSION: No ultrasound evidence for deep venous thrombosis of the right lower extremity.
== END | disposition home or self-care (01) ==
LOC: RADUSWWP 16:21
PROVIDERS: ATTEND Emergency Medicine
DX: S93.601D Unspecified sprain of right foot, subsequent encounter (principal); M79.661 Pain in right lower leg

== ENCOUNTER → 2023-06-01 | Outpatient (CLI) | payer BC ==
--- NOTE | 2023-06-01 12:07 | XR ---
EXAMINATION TYPE: XR knee complete LT DATE OF EXAM: 06/01/2023 COMPARISON: 04/07/2021 HISTORY: Pain TECHNIQUE: Three views are submitted. FINDINGS: Diffuse osteopenia with mild narrowing of the medial compartment and patellofemoral compartment. Janet inal spurring. Tiny enthesophytes of the patella. Osseous structures are intact. No acute fracture seen. IMPRESSION: 1. Mild osteoarthritis.
== END | disposition home or self-care (01) ==
LOC: RADXRMAIN 11:07
PROVIDERS: ATTEND Family Medicine
DX: M17.12 Unilateral primary osteoarthritis, left knee (principal)

== ENCOUNTER → 2023-11-03 | Outpatient (CLI) | payer OTHER ==
--- NOTE | 2023-11-03 10:01 | BD ---
EXAMINATION TYPE: Axial Bone Density DATE OF EXAM: 11/03/2023 CLINICAL HISTORY: 63 years old Female. ICD-10 CODE: N95.1 POST MENOPAUSAL SYMPTOMS M85.88 OTHER DISO RDER OF BONE Height: 62 Weight: 195 FRAX RISK QUESTIONS: Family History (Parent hip fracture): no History of Fracture in Adulthood: no Secondary Osteoporosis: no RISK FACTORS HISTORY OF: Surgery to Spine/Hip(right/left)/Wrist (right/left): no MEDICATIONS: Thyroid Medications: no Osteoporosis Medications: no EXAM MEASUREMENTS: Bone mineral densitometry was performed using the [employer] System. Bone mineral density as measured about the Lumbar spine is: ----- L1-L4(G/cm2): 1.470 T Score Values are as follows: ----- L1: 1.8 ----- L2: 2.5 ----- L3: 1.9 ----- L4: 3.2 ----- L1-L4: 2.4 Z Score Values are as follows: ----- L1: 2.6 ----- L2: 3.2 ----- L3: 2.7 ----- L4: 3.9 ----- L1-L4: 3.2 Bone mineral density has: Increased 10.2% since study of: 10/03/2013 Bone mineral density about the R hip (g/cm2): 0.996 Bone mineral density about the L hip (g/cm2): 1.053 T Score values are as follows: -----R Neck: -1.9 -----L Neck: -1.5 -----R Total: -0.1 -----L Total: 0.4 Z Score values are as follows: -----R Neck: -0.9 -----L Neck: -0.6 -----R Total: 0.5 -----L Total: 1.0 Bone mineral density has: Decreased -5.0% since study of: 10/03/2013 FRAX%s: The graph provided illustrates a 9.3% chance for a major osteoporotic fx and a 1.2% chance fo r the hips probability for fx in 10 years time. IMPRESSION: Normal (Values between +1 and -1 indicate normal bone mass). Consider repeating this study in 5 year s or sooner if there is some new clinical indication. NOTE: T-SCORE=SD OF THE YOUNG ADULT MEAN.
--- NOTE | 2023-11-04 14:15 | MM ---
Reason for Exam: Screening (asymptomatic). Last mammogram was performed 1 year(s) and 3 month(s) ago. Patient History: Menarche at age 11. First Full-Term at age 21. Right ovary removed at age 44. Hysterectomy at age 44. Postmenopausal. Estrogen, starting at age 47 for 9 years. Benign Excisional Biopsy on the right side. Benign Excisional Biopsy on the left side. Risk Values: Maranda 5 year model risk: 2.2%. NCI Lifetime model risk: 8.6%. Prior Study Comparison: 04/12/2018 Bilateral Screening Mammogram, [facility]. 06/19/2020 Bilateral Screening Mammogram, [facility]. 08/04/2022 Bilateral MG 3D screening mammo w/cad, [facility]. Tissue Density: The breasts are heterogeneously dense, which may obscure small masses. Findings: Analyzed By CAD. There is no suspicious group of microcalcifications or new suspicious mass in either breast. Overall Assessment: Negative, BI-RAD 1 Management: Screening Mammogram of both breasts in 1 year. . Patient should continue monthly self-breast exams. A clinical breast exam by your physician is recommended on an annual basis. This exam should not preclude additional follow-up of suspicious palpable abnormalities. Note on Maranda scores and lifetime risk: 1. A Maranda score greater than 3% is considered moderate risk. If this is the case, consider specialist referral to assess eligibility for a risk reducing agent. 2. If overall lifetime risk for the development of breast cancer is 20% or higher, the patient may qualify for future screening with alternating mammogram and breast MRI. Electronically signed and approved by: Shaq Alba M.D. Radiologis
== END | disposition home or self-care (01) ==
LOC: RADMAMWWP 07:46
PROVIDERS: ATTEND Family Medicine
DX: Z12.31 Encounter for screening mammogram for malignant neoplasm of breast
CPT/HCPCS: 77063; 77067; 77080

== ENCOUNTER 2023-11-05 16:26 | Emergency (ER) | payer OTHER ==
[2023-11-05 16:52] VITALS: TEMP 98
--- NOTE | 2023-11-05 17:10 | ED ---
Upper Extremity HPI <MillerTyler - Last Filed: 11/05/23 19:48> - General Source: patient, RN notes reviewed Mode of arrival: ambulatory Limitations: no limitations <Cassie Ko - Last Filed: 11/05/23 21:59> - General Chief Complaint: Extremity Injury, Upper Stated Complaint: fall-wrist injury-[facility] Time Seen by Provider: 11/05/23 16:40 - History of Present Illness Initial Comments: 63-year-old female presents emergency department chief complaint of right wrist pain. 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 She denies hitting her head or loss conscious at the time of this event. Patient denies blood thinner use. Patient does have pain with range of motion of the wrist. denies previous surgeries of the wrist or hand. Denies right elbow or shoulder pain. No other acute complaints at this time. (Cassie Ko) - Related Data Home Medications Medication Instructions Recorded Confirmed Meloxicam [Mobic] 15 mg PO DAILY 04/19/14 11/04/20 Omeprazole 40 mg PO DAILY 04/19/14 11/04/20 lisinopriL [Prinivil] 20 mg PO QAM 04/19/14 11/04/20 Gabapentin [Neurontin] 600 mg PO TID 06/03/17 11/04/20 traMADol HCL [Ultram] 50 - 100 mg PO TID PRN 06/03/17 11/04/20 Calcium Carbonate [Calcium] 600 mg PO BID 11/04/20 11/04/20 Cholecalciferol (Vitamin D3) 125 mcg PO DAILY 11/04/20 11/04/20 [Vitamin D3 (125 MCG = 5,000 IU)] Cyclobenzaprine [Flexeril] 5 mg PO BID PRN 11/04/20 11/04/20 Magnesium 250 mg PO DAILY 11/04/20 11/04/20 Potassium Gluconate [Potassium 99 mg PO DAILY 11/04/20 11/04/20 Gluconate ER] Rosuvastatin Calcium 40 mg PO DAILY 11/04/20 11/04/20 estradioL [Estradiol] 0.5 mg PO DAILY 11/04/20 11/04/20 Previous Rx's Medication Instructions Recorded HYDROcodone/APAP 7.5-325MG [[place] 1 tab PO Q6HR PRN 3 Days #12 tab 11/05/23 7.5-325] Allergies Allergy/AdvReac Type Severity Reaction Status Date / Time No Known Allergies Allergy Verified 04/07/21 13:45 Review of Systems ROS Other: All systems not noted in ROS Statement are negative. <Tyler Miller - Last Filed: 11/05/23 19:48> ROS Other: All systems not noted in ROS Statement are negative. <Cassie Ko - Last Filed: 11/05/23 21:59> ROS Statement: Those systems with pertinent positive or pertinent negative responses have been documented in the HPI. Past Medical History Past Medical History: Coronary Artery Disease (CAD), GERD/Reflux, Hyperlipidemia, Hypertension, Osteoarthritis (OA) Additional Past Medical History / Comment(s): hx plantar fASCITIS, heel spurs, heart murmur History of Any Multi-Drug Resistant Organisms: None Reported Past Surgical History: Section, Heart Catheterization, Hysterectomy Additional Past Surgical History / Comment(s): BILAT BREAST CYSTS REMOVED,. BILAT WRIST CYSTS REMOVED,. COLONOSCOPY,rt foot x2 Past Anesthesia/Blood Transfusion Reactions: No Reported Reaction Past Psychological History: No Psychological Hx Reported Smoking Status: Former smoker Past Alcohol Use History: None Reported Past Drug Use History: None Reported - Past Family History Mother Family Medical History: No Reported History <Cassie Ko - Last Filed: 11/05/23 21:59> General Exam Limitations: no limitations General appearance: alert, in no apparent distress Eye exam: Present: normal appearance, PERRL, EOMI. Absent: scleral icterus, conjunctival injection, periorbital swelling ENT exam: Present: normal exam, mucous membranes moist Neck exam: Present: normal inspection. Absent: tenderness, meningismus, lymphadenopathy Respiratory exam: Present: normal lung sounds bilaterally. Absent: respiratory distress, wheezes, rales, rhonchi, stridor Cardiovascular Exam: Present: regular rate, normal rhythm, normal heart sounds. Absent: systolic murmur, diastolic murmur, rubs, gallop, clicks GI/Abdominal exam: Present: soft, normal bowel sounds. Absent: distended, tenderness, guarding, rebound, rigid Right Forearm Wrist exam: Present: tenderness, swelling, deformity. Absent: normal inspection, full ROM Hand Wrist exam: Present: tenderness, swelling, deformity Neuro motor exam: Absent: wrist extension intact Vascular: Present: normal capillary refill, radial pulse (2+). Absent: vascular compromise Back exam: Present: normal inspection Neurological exam: Present: alert, oriented X3, CN II-XII intact Skin exam: Present: warm, dry, intact, normal color. Absent: rash <Cassie Ko - Last Filed: 11/05/23 21:59> Course Vital Signs 11/05/23 11/05/23 16:48 21:15 Temperature 98 F Pulse Rate 93 71 Respiratory 20 18 Rate Blood Pressure 122/69 134/63 O2 Sat by Pulse 95 95 Oximetry Procedures - Orthopedic Fracture Reduction Fracture #1 Consent Obtained: verbal consent Side: right Fracture Reduction Location: radius Analgesia: procedural sedation Technique: traction/counter-traction Post Reduction X-rays Demonstrate: acceptable reduction Post-Reduction Neuro Exam: intact Post-Reduction Vascular Exam: intact Splint Applied: Yes Patient Tolerated Procedure: well - Procedural Sedation *Procedural Sedation Start Time: 19:36 *Procedural Sedation Stop Time: 20:00 *Risks,benefits, and alternative therapies discussed?: Yes *Patient indicates understanding of risk/benefit discussion?: Yes *Indications: fracture/dislocation reduction *Previous Adverse Reaction to Anesthesia/Sedation?: No * Testing Complete?: No Reason Test Not Complete:: Emergent Situation *ASA Class: II *Mallampati Airway Score: 2 Preparation: case monitor applied, pulse oximeter, capnometry used, supplemental O2 applied IV Propofol Dose (mgs): 100 Complications: none Patient Tolerated Procedure: well <Tyler Miller - Last Filed: 11/05/23 19:48> - Orthopedic Joint Reduction Joint #1 Consent Obtained: verbal consent Side: right Joint Reduction Location: wrist Analgesia: other (conscious sedation with propofol) Technique Used: traction/counter-traction Post-Reduction Neuro Exam: intact Post-Reduction Vascular Exam: intact Post Reduction X-Ray Obtained: Yes Post Reduction X-Ray Results: reduced Splint Applied: Yes Patient Tolerated Procedure: well, no complications - Orthopedic Splinting/Casting Injury #1 Side: right Upper Extremity Injury Location: wrist Upper Extremity Immobilizer: sugar tong splint Lower Extremity Immobilizer: Shukri wrap, synthetic pre-padded splint <Cassie Ko - Last Filed: 11/05/23 21:59> Medical Decision Making <Cassie Ko - Last Filed: 11/05/23 21:59> - Medical Decision Making Was pt. sent in by a medical professional or institution (, [facility], [facility], urgent care, hospital, or care home...) When possible be specific @ -No Did you speak to anyone other than the patient for history (EMS, parent, family, police, friend...)? What history was obtained from this source @ -No Did you review nursing and triage notes (agree or disagree)? Why? @ -I reviewed and agree with nursing and triage notes Were old charts reviewed (outside hosp., previous admission, EMS record, old EKG , old radiological studies, urgent care reports/EKG's, care home records)? Report findings @ -No old charts were reviewed Differential Diagnosis (chest pain, altered mental status, abdominal pain women, abdominal pain men, vaginal bleeding, weakness, fever, dyspnea, syncope, headache, dizziness, GI bleed, back pain, seizure, CVA, palpatations, mental health, musculoskeletal)? @ -Differential Musculoskeletal Muscular strain, contusion, ligament sprain, fracture, arthritis, septic arthritis, bursitis, cellulitis, muscle spasm, nerve compression, DVT, arterial occlusion, herpes zoster, electrolyte abnormality, tumor.... This is not meant to be in all inclusive list EKG interpreted by me (3pts min.). @ -As above X-rays interpreted by me (1pt min.). @ -X-ray of the right wrist and right hand reveals a right distal radius fracture with intra-articular fracture line and dorsal angulation and mild displacement CT interpreted by me (1pt min.). @ -None done U/S interpreted by me (1pt. min.). @ -None done What testing was considered but not performed or refused? (CT, X-rays, U/S, labs)? Why? @ -None What meds were considered but not given or refused? Why? @ -None Did you discuss the management of the patient with other professionals (professionals i.e. [facility]UR[facility] Macias, [facility] [employer] [facility], lab, RT, psych nurse, social studies department chair, property preservation specialist, teacher, electoral officer, case packer)? Give summary @ -No Was smoking cessation discussed for >3mins.? @ -No Was critical care preformed (if so, how long)? @ -No Were there social determinants of health that impacted care today? How? (Homelessness, low income, unemployed, alcoholism, drug addiction, transportation, low edu. Level, literacy, decrease access to med. care, intermediate, rehab)? @ -No Was there de-escalation of care discussed even if they declined (Discuss DNR or withdrawal of care, Hospice)? DNR status @ -No What co-morbidities impacted this encounter? (DM, HTN, Smoking, COPD, CAD, Cancer, CVA, ARF, Chemo, Hep., AIDS, mental health diagnosis, sleep apnea, morbid obesity)? @ -None Was patient admitted / discharged? Hospital course, mention meds given and route, prescriptions, significant lab abnormalities, going to OR and other pertinent info. @ -Discharge. 63-year-old female with right wrist pain. On examination patient noted to have deformity of the right wrist and pain with range of motion of the fingers, range of motion of the wrist is not assessed. Patient neurovascularly intact. X-ray concerning for distal radius fracture. Patient was provided with Dilaudid and conscious sedated pleated with propofol and my attending Dr. Miller did an reduction. Sugar-tong splint placed and postreduction x-ray revealed reduced fracture. Patient provided with additional dose of Dilaudid provided with pain medication outpatient. Provided with orthopedic referral for further evaluation outpatient. Instruct patient to continue to use sling and splint to do well with central communications specialist is provided with a work note. Undiagnosed new problem with uncertain prognosis? @ -No Drug Therapy requiring intensive monitoring for toxicity (Heparin, Nitro, Insulin, Cardizem)? @ -Propofol for conscious sedation, respiratory helped Were any procedures done? @ -conscious sedation, joint reduction Diagnosis/symptom? @ -radius fracture Acute, or Chronic, or Acute on Chronic? @ -acute Uncomplicated (without systemic symptoms) or Complicated (systemic symptoms)? @ -uncomplicated Side effects of treatment? @ -No Exacerbation, Progression, or Severe Exacerbation? @ -No Poses a threat to life or bodily function? How? (Chest pain, [place], [place], pneumonia, PE, COPD, DKA, ARF, appy, cholecystitis, CVA, Diverticulitis, Homicidal, Suicidal, threat to staff... and all critical care pts) @ -No (Cassie Ko) Disposition <Tyler Miller - Last Filed: 11/05/23 19:48> Is patient prescribed a controlled substance at d/c from ED?: Yes When asked, does pt state using other controlled substances?: No If prescribed controlled substance>3 days was MAPS reviewed?: Prescribed <3 Days Time of Disposition: 20:02 <Cassie Ko - Last Filed: 11/05/23 21:59> Clinical Impression: Radius fracture Disposition: HOME SELF-CARE Condition: Good Instructions (If sedation given, give patient instructions): Wrist Fracture in Adults (ED), Procedural Sedation (ED) Additional Instructions: Return to the emergency department for any new or worsening symptoms. Keep wrist in splint and sling until follow-up with central communications specialist. Take pain medication as needed. Prescriptions: HYDROcodone/APAP 7.5-325MG [[place] 7.5-325] 1 tab PO Q6HR PRN 3 Days #12 tab PRN Reason: Pain Referrals: Adamaris Carvalho MD [Primary Care Provider] - 1-2 days Nic Arechiga DO [Doctor of Osteopathic Medicine] - 1-2 days
--- NOTE | 2023-11-05 17:25 | XR ---
EXAMINATION TYPE: XR wrist complete RT, XR hand complete RT DATE OF EXAM: 11/05/2023 5:21 PM CLINICAL INDICATION: Female, 63 years old with history of injury, pain, deformity; [facility] COMPARISON: None TECHNIQUE: XR wrist complete RT, XR hand complete RT; examined in the Frontal, navicular, lateral, a nd oblique. FINDINGS/IMPRESSION: Right distal radius fracture with what is thought to be intra-articular fracture line. There is dorsa l angulation and mild displacement. No additional fractures identified.
[2023-11-05] MEDS: HYDROmorphone 1 MG/ML 1 ML SYRINGE IVP STA ×2 (18:24→20:20)
[2023-11-05] MEDS: PROPOFOL 10 MG/ML 20 ML VIAL IV ONE (19:36)
[2023-11-05] MEDS: ACET/COD 300 MG/30 MG STARTER PACK 6 TAB BTL PO STA (20:15)
--- NOTE | 2023-11-05 21:39 | XR ---
EXAMINATION TYPE: XR wrist limited RT DATE OF EXAM: 11/05/2023 8:16 PM CLINICAL INDICATION:Female, 63 years old with history of post reduction COMPARISON: Right hand radiograph from the same day TECHNIQUE: XR wrist limited RT; examined in the Frontal and lateral views. FINDINGS: Please note that overlying cast material limits the evaluation of fine osseous and soft tissue detail s. There has been interval cast placement with approximation of previously seen distal right radial frac ture angulation. There is still mild displacement present of the fracture. No new fractures or disloc ations. Similar soft tissue edema. IMPRESSION: Interval cast placement of the right wrist and hand with approximation of the distal right radial fra cture angulation. Similar displacement still present.
[2023-11-06 01:35] VITALS: BP 131/61; PULSE 72; RESP 16
== END 2023-11-05 21:00 | disposition home or self-care (01) ==
LOC: EC 16:26
CPT/HCPCS: 25605; 96374; 96376; 99152; 99283

== ENCOUNTER → 2024-09-07 | Outpatient (CLI) | payer OTHER, MEDICARE ==
[2024-09-07 15:16] LABS: ALT 13 U/L (8-44); AST 23 U/L (13-35); Cholesterol 166.00 mg/dL (0.00-200.00); HDL Cholesterol 81.40 mg/dL (40.00-60.00); LDL Cholesterol,Calculated 67.8 mg/dL (0.0-131.0); Triglycerides 84.20 mg/dL (0.00-149.00); VLDL Calculation 16.84 mg/dL (5.00-40.00)
== END | disposition home or self-care (01) ==
LOC: LABWHC1 08:44
PROVIDERS: ATTEND Internal Medicine Interventional Cardiology
DX: E78.2 Mixed hyperlipidemia (principal)
CPT/HCPCS: 36415; 80061; 84450; 84460